=== PATIENT | female | born 1970 | race Caucasian/White ===

== ENCOUNTER → 2017-05-28 | Outpatient (CLI) | payer BC, OTHER ==
[~2017-05-28] MED LIST: ESTR0.3T PO; NITR-65 PO
--- NOTE | 2017-05-29 11:46 | Diagnostic Imaging Report ---
Bilateral screening mammogram 2D views with tomosynthesis The current study was also evaluated with a Computer Aided Detection (CAD) system. Indication: Screening. No current complaints stated on the questionnaire. COMPARISON: 05/27/15. FINDINGS: The breasts are composed of heterogeneously dense parenchyma which may decrease mammographic sensitivity. Allowing for technique and positional differences, no suspicious change is seen. IMPRESSION: Dense breasts with no definite change. ACR BI-RADS Category 2: Benign findings. Result letter will be mailed to the patient. Note: At least 10% of breast cancer is not imaged by mammography. Dictated by: Dictated on workstation # [id number]
== END ==
LOC: RAD 15:25
PROVIDERS: ATTEND Obstetrics & Gynecology
DX: Z12.31 Encounter for screening mammogram for malignant neoplasm of breast (principal)
CPT/HCPCS: 77067

== ENCOUNTER → 2018-07-07 | Outpatient (CLI) | payer OTHER ==
--- NOTE | 2018-07-08 08:50 | Diagnostic Imaging Report ---
INDICATION: Routine screening. Comparison is made with prior mammogram from 05/28/2017 and 05/27/2016. 2-D and 3-D bilateral screening mammography was performed with a Computer Aided Detection (CAD) system. FINDINGS: Since prior study, patient has undergone bilateral breast augmentation. Implant contours appear to be fairly smooth. Breast parenchymal pattern is heterogeneously dense, limiting the sensitivity of mammography. No mass or malignant appearing microcalcifications are seen. The axillae are unremarkable. IMPRESSION: No mammographic features suspicious for malignancy are identified. ACR BI-RADS Category 1: Negative. Result letter will be mailed to the patient. Note: At least 10% of breast cancer is not imaged by mammography. Dictated by: Dictated on workstation # [id number]
== END ==
LOC: RAD 14:52
PROVIDERS: ATTEND Obstetrics & Gynecology
DX: Z12.31 Encounter for screening mammogram for malignant neoplasm of breast (principal)
CPT/HCPCS: 77067

== ENCOUNTER → 2018-12-02 | Outpatient (CLI) | payer OTHER ==
--- NOTE | 2018-12-02 14:35 | Diagnostic Imaging Report ---
INDICATION: Foot pain. COMPARISON: None. FINDINGS: Three views of the left foot demonstrate no acute fracture or dislocation. There are no focal osseous lesions. There is no soft tissue swelling. Joint spaces are well maintained. No radiopaque foreign bodies are seen. IMPRESSION: No acute fractures or dislocations of the left foot. Dictated by: Dictated on workstation # [id number]
== END ==
LOC: RAD 14:09
PROVIDERS: ATTEND Family Medicine
DX: M79.672 Pain in left foot (principal)
CPT/HCPCS: 73630

== ENCOUNTER → 2019-07-26 | Outpatient (CLI) | payer OTHER ==
--- NOTE | 2019-07-26 19:26 | Diagnostic Imaging Report ---
INDICATION: Routine screening. Comparison is made with prior mammogram from 07/07/2018 and 05/28/2017. 2-D and 3-D bilateral screening mammography was performed with CAD. The current study was also evaluated with a Computer Aided Detection (CAD) system. 3-D tomosynthesis was also performed and reviewed. Bilateral breast implants again noted. Implant contours appear stable. Both breasts are heterogeneously dense, limiting the sensitivity of mammography. The parenchymal pattern appears to be stable. No mass or malignant appearing microcalcifications are seen. The axillae are unremarkable. IMPRESSION: No mammographic features suspicious for malignancy are identified. ACR BI-RADS Category 2: Benign findings. Result letter will be mailed to the patient. Note: At least 10% of breast cancer is not imaged by mammography. Dictated by: Dictated on workstation # [id number]
== END ==
LOC: RAD 14:58
DX: Z12.31 Encounter for screening mammogram for malignant neoplasm of breast (principal)
CPT/HCPCS: 77067

== ENCOUNTER → 2020-08-06 | Outpatient (CLI) | payer OTHER ==
--- NOTE | 2020-08-06 15:08 | Diagnostic Imaging Report ---
INDICATION: Posterior mid back pain. TIME OF EXAM: 2:02 PM. FINDINGS: Frontal and lateral views of the thoracic spine were obtained. There is very slight right convexity thoracic scoliotic curvature. The vertebral body heights are maintained. No acute compression fracture is seen. The pedicles and paraspinous line are intact. IMPRESSION: No acute bony abnormality is detected. Dictated by: Dictated on workstation # [id number]
--- NOTE | 2020-08-06 15:13 | Diagnostic Imaging Report ---
PROCEDURE: US Renal Bilateral. TECHNIQUE: Multiple Real-time grayscale images were obtained over the kidneys in various projections bilaterally. INDICATION: Left flank pain and hematuria. FINDINGS: The right kidney measures 9.3 x 4.9 x 3.8 cm and the left kidney measures 7.9 x 3.9 x 5.5 cm. The cortical thickness and echogenicity are normal bilaterally. No calculi are seen. There is no hydronephrosis. Bilateral ureteral jets are visualized. IMPRESSION: Unremarkable renal ultrasound. Dictated by: Dictated on workstation # [id number]
== END ==
LOC: RAD 13:17
PROVIDERS: ATTEND Family Medicine
DX: R31.9 Hematuria, unspecified (principal); R10.9 Unspecified abdominal pain; M54.6 Pain in thoracic spine
CPT/HCPCS: 72072; 76770

== ENCOUNTER → 2020-08-06 | Outpatient (CLI) | payer OTHER ==
--- NOTE | 2020-08-07 12:54 | Diagnostic Imaging Report ---
INDICATION: Routine screening. COMPARISON: 07/26/2019 and 07/07/2018. TECHNIQUE: 2D and 3D bilateral screening mammography was performed with CAD. FINDINGS: Bilateral breast implants are noted. The implant contours appear smooth. No definite extracapsular rupture is identified. Both breasts remain heterogeneously dense, limiting the sensitivity of mammography. No mass or malignant appearing microcalcifications are seen. The axillae are unremarkable. IMPRESSION: No mammographic features suspicious for malignancy are identified. ACR BI-RADS Category 2: Benign findings. Result letter will be mailed to the patient. Note: At least 10% of breast cancer is not imaged by mammography. Dictated by: Dictated on workstation # [id number]
== END ==
LOC: RAD 14:30
PROVIDERS: ATTEND Obstetrics & Gynecology
DX: Z12.31 Encounter for screening mammogram for malignant neoplasm of breast (principal)
CPT/HCPCS: 77063; 77067

== ENCOUNTER → 2021-08-19 | Outpatient (CLI) | payer OTHER ==
--- NOTE | 2021-08-19 12:49 | Diagnostic Imaging Report ---
EXAMINATION: PA and lateral chest at 12:35 PM. INDICATION: Cough. COMPARISON: There are no prior studies available for comparison. FINDINGS: The heart size is within normal limits. On the PA view, there are vague areas of slightly increased density overlying each lung base. These are felt to be secondary to superimposition of the breast/chest tissue and to the bilateral breast implants seen on the mammogram performed on 08/06/2020. The lungs are clear. There is no evidence for failure, pneumonia, or pleural effusion. The mediastinum is not widened. The osseous structures are intact. IMPRESSION: There is no evidence for an acute cardiopulmonary abnormality. Dictated by: Dictated on workstation # [id number]
== END ==
LOC: RAD
PROVIDERS: ATTEND Family Medicine
DX: R05.9 Cough, unspecified (principal)
CPT/HCPCS: 71046

== ENCOUNTER → 2021-09-09 | Outpatient (CLI) | payer OTHER ==
--- NOTE | 2021-09-09 15:45 | Diagnostic Imaging Report ---
INDICATION: Routine screening. Comparison is made with prior mammogram 08/06/2020 and 07/26/2019. 2-D and 3-D bilateral screening mammography was performed with CAD. Both breasts contain implants. Implant contours remains stable. Breast parenchymal is heterogeneously dense, limiting the sensitivity of mammography. The parenchymal pattern is stable. No mass or malignant-appearing microcalcifications are seen. Axillae are unremarkable. IMPRESSION: No mammographic features suspicious for malignancy are identified. BI-RADS Category 2 ACR BI-RADS Category 2: Benign findings. Result letter will be mailed to the patient. Note: At least 10% of breast cancer is not imaged by mammography. Dictated by: Dictated on workstation # [id number]
== END ==
LOC: RAD 15:00
PROVIDERS: ATTEND Nurse Practitioner Family
DX: Z12.31 Encounter for screening mammogram for malignant neoplasm of breast (principal)
CPT/HCPCS: 77063; 77067

== ENCOUNTER → 2022-10-03 | Outpatient (CLI) | payer BC, OTHER ==
--- NOTE | 2022-10-03 14:30 | Diagnostic Imaging Report ---
Indication: Routine screening. Comparison is made with prior mammograms 09/09/2021 and 08/06/2020. 2-D and 3-D bilateral screening mammography was performed with CAD. Bilateral breast implants are again noted. Implant contours appear stable. Both breasts are heterogeneously dense, limiting the sensitivity of mammography. The parenchymal pattern is stable. No mass or malignant appearing microcalcifications are seen. Axillae are unremarkable. IMPRESSION: BI-RADS Category 2 No mammographic features suspicious for malignancy are identified. ACR BI-RADS Category 2: Benign findings. Result letter will be mailed to the patient. Note: At least 10% of breast cancer is not imaged by mammography. Dictated by: Dictated on workstation # [id number]
== END ==
LOC: RAD 08:45
PROVIDERS: ATTEND Nurse Practitioner Family
DX: Z12.31 Encounter for screening mammogram for malignant neoplasm of breast (principal)
CPT/HCPCS: 77063; 77067

== ENCOUNTER → 2023-02-09 | Outpatient (CLI) | payer BC ==
--- NOTE | 2023-02-09 11:27 | Diagnostic Imaging Report ---
Ultrasound of the right breast. Indication: Right breast pain The screening mammogram performed on 10/03/2022 failed to show any sign of malignancy on acute abnormality. There was an implant in place on the right. The implant seemed stable when compared to the prior exam of 09/09/2021. On this study there is no discrete solid or cystic mass within the right breast or chest wall or the right axilla. There is no sign of an abscess either. The right breast implant, where visualized, appears to be intact. Impression: 1. There is no acute abnormality identified nor is there any sign of a mass. The right breast implant also appears to be intact. 2. If clinical concern regarding an underlying abnormality persists and further evaluation is desired, then either a diagnostic mammogram or preferably MRI of the breast would be recommended. ACR BI-RADS Category 1: Negative. Result letter will be mailed to the patient. Note: At least 10% of breast cancer is not imaged by mammography. BI-RADS Category 1 Dictated by: Dictated on workstation # [id number]
== END ==
LOC: RAD 10:14
PROVIDERS: ATTEND Family Medicine
DX: N64.4 Mastodynia (principal); M79.621 Pain in right upper arm
CPT/HCPCS: 76641

== ENCOUNTER → 2023-02-10 | Outpatient (CLI) | payer BC ==
--- NOTE | 2023-02-10 13:43 | Diagnostic Imaging Report ---
EXAMINATION: Chest radiograph TECHNIQUE: PA and lateral views of the chest obtained. HISTORY: R CHEST PAIN/CHEST WALL PAIN/RIB PAIN COMPARISON: None available. FINDINGS: No focal consolidation. Normal lung volume. Cardiac silhouette and pulmonary vascularity are within normal limits. No pleural effusion or pneumothorax. No acute osseous findings. IMPRESSION: No acute chest findings. Dictated by: Dictated on workstation # [id number]
--- NOTE | 2023-02-10 17:42 | Diagnostic Imaging Report ---
INDICATION: Chest wall pain COMPARISON: Imaging from the same date as well as from 08/19/2021 TECHNIQUE: 3 radiographs of the right-sided ribs dated 02/10/2023. FINDINGS: Surgical clips are present within the right upper abdomen. The right lung is clear. No large volume right pleural effusion or pneumothorax. No acute displaced or healing right-sided rib fracture. No suspicious radiopaque foreign body. IMPRESSION: No acute displaced or healing right-sided rib fracture. No significant right-sided pleural effusion or pneumothorax. Dictated by: Dictated on workstation # [id number]
== END ==
LOC: RAD 10:25
PROVIDERS: ATTEND Family Medicine
DX: R07.81 Pleurodynia (principal); R07.89 Other chest pain
CPT/HCPCS: 71046; 71100

== ENCOUNTER → 2023-03-18 | Outpatient (CLI) | payer BC ==
--- NOTE | 2023-03-18 09:28 | Diagnostic Imaging Report ---
PROCEDURE: CT urinary tract, rule out kidney stone. TECHNIQUE: Multiple contiguous axial images were obtained through the abdomen and pelvis without the use of intravenous contrast. Auto Exposure Controls were utilized during the CT exam to meet ALARA standards for radiation dose reduction. INDICATION: Right upper quadrant pain Lung bases are clear. Liver appears normal. Gallbladder surgically absent. Pancreas is normal. Spleen is not enlarged. Adrenals are normal. Kidneys are normal. Small bowel is not dilated. Appendix is normal. Colon is normal. Uterus is surgically absent. Right ovary is present. Left ovary appears to be absent. There is no intraperitoneal free air or free fluid. IMPRESSION: No acute abnormality seen in the abdomen or pelvis. Dictated by: Dictated on workstation # [id number]
== END ==
LOC: RAD 07:32
PROVIDERS: ATTEND Family Medicine
DX: R10.11 Right upper quadrant pain (principal)
CPT/HCPCS: 74176